=== PATIENT | female | born 1985 | race Caucasian/White ===

== ENCOUNTER 2017-05-22 13:51 | Emergency (ER) | payer OTHER ==
[2017-05-22] MEDS ORDERED: KETOROLAC TROMETHAMINE INJ/PF 30 MG/1 ML SDV IM ONE (14:45)
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
[2017-05-22 15:07] VITALS: BP 138/83
== END 2017-05-22 15:15 | disposition home or self-care (01) ==
LOC: ER 13:51
DX: S39.012A Strain of muscle, fascia and tendon of lower back, initial encounter (principal); S29.012A Strain of muscle and tendon of back wall of thorax, initial encounter; M25.511 Pain in right shoulder; M62.838 Other muscle spasm; V49.40XA Driver injured in collision with unspecified motor vehicles in traffic accident, initial encounter; F17.200 Nicotine dependence, unspecified, uncomplicated
CPT/HCPCS: 99283; 96372; J1885

== ENCOUNTER 2018-04-26 15:05 | Emergency (ER) | payer SELFPAY ==
[2018-04-26 15:20] VITALS: BP 144/88
--- NOTE | 2018-04-26 16:41 | ER Document Report ---
HPI - HPI Patient complains to provider of: right low back pain Onset: Other - several weeks Quality of pain: Achy Pain Level: 4 Context: 33 yo female with right side low back pain into SI joint and posterior right upper leg. No saddle anesthesia. No fever. No abd pain. No dysuria. Associated Symptoms: None Exacerbated by: Movement Relieved by: Denies - ROS ROS below otherwise negative: Yes Systems Reviewed and Negative: Yes All other systems reviewed and negative - REPRODUCTIVE Reproductive: DENIES: : Past Medical History - General Information source: Patient - Social History Smoking Status: Never Smoker Lives with: Family Family History: Arthritis, CAD, CVA, Hyperlipidemia, Hypertension, Malignancy Pulmonary Medical History: Reports: Hx Bronchitis, Hx Pneumonia Renal/ Medical History: Reports: Hx Ectopic - 2010 Past Surgical History: Reports: Hx Adenoidectomy, Hx Appendectomy, Hx Gynecologic Surgery - ectopic , Hx Tonsillectomy - adnoid ectomy. Denies: Hx Tubal Ligation - Immunizations Immunizations up to date: Yes Hx Diphtheria, Pertussis, Tetanus Vaccination: Yes Hx Pneumococcal Vaccination: 06/21/11 Vertical Provider Document - CONSTITUTIONAL Agree With Documented VS: Yes Exam Limitations: No Limitations General Appearance: No Apparent Distress - INFECTION CONTROL TRAVEL OUTSIDE OF THE [place] IN LAST 30 DAYS: No - MUSCULOSKELETAL/EXTREMETIES Musculoskeletal/Extremeties: MAEW, FROM, Tender - left SI joint - NEURO Level of Consciousness: Alert Motor/Sensory: No Motor Deficit, No Sensory Deficit Deep Tendon Reflexes: 2+ - angelika ankle and patellar Course - Re-evaluation Re-evalutation: 04/26/18 16:48 Pain resolved when patient laid on her back with a rolled towel under the sacral iliac joint. She is relieved and does not want any prescriptions or medications. - Vital Signs Vital signs: Temp Pulse Resp BP Pulse Ox 99.0 F 97 16 144/88 H 95 04/26/18 15:18 04/26/18 15:18 04/26/18 15:18 04/26/18 15:18 04/26/18 15:18 Discharge - Discharge Clinical Impression: right sacroilitis Sciatica Qualifiers: Laterality: right Qualified Code(s): M54.31 - Sciatica, right side Condition: Good Disposition: HOME, SELF-CARE Instructions: Acetaminophen, Ibuprofen (General) ([facility]), Low Back Pain ([facility]), Stop Smoking ([facility]), Warm Packs ([facility]) Additional Instructions: Rolled towel under back and buttocks when you are lying supine to help relieve the pain Tylenol up to 4000 mg a day for pain quit smoking Warm compress Return to the emergency room any worsening of the symptoms Forms: Return to Work
== END 2018-04-26 17:03 | disposition home or self-care (01) ==
LOC: ER 15:05
DX: M46.1 Sacroiliitis, not elsewhere classified (principal); M54.31 Sciatica, right side; M54.5 Low back pain; M79.604 Pain in right leg; M53.3 Sacrococcygeal disorders, not elsewhere classified; I10 Essential (primary) hypertension
CPT/HCPCS: 99283

== ENCOUNTER 2018-05-11 14:38 | Emergency (ER) | payer SELFPAY ==
--- NOTE | 2018-05-11 15:18 | ER Document Report ---
ED Medical Screen (RME) - General Chief Complaint: Abdominal Pain Stated Complaint: ABDOMINAL PAIN Time Seen by Provider: 05/11/18 15:14 TRAVEL OUTSIDE OF THE [place] IN LAST 30 DAYS: No - HPI Notes: 05/11/18 15:18 Patient is a 33 female that presents to the emergency department for chief complaint of lower abdominal pain nausea and vaginal bleeding. Patient has had intermittent and sporadic vaginal bleeding throughout the month. She is endorsing a lower abdominal pressure. She does states she has some discomfort with urination. She denies any vomiting but does feel nauseated. She has not taken any home test.. ROS: GENERAL: Denies fever of chills CV: Denies chest pain PHYSICAL EXAMINATION: GENERAL: Well-appearing, well-nourished and in no acute distress. HEAD: Atraumatic, normocephalic. EYES: Pupils equal round extraocular movements intact, conjunctiva are normal. ENT: Nares patent NECK: Normal range of motion LUNGS: No respiratory distress Musculoskeletal: Normal range of motion NEUROLOGICAL: Normal speech, normal gait. PSYCH: Normal mood, normal affect. MDM: Patient seen and examined for rapid initial assessment. Vital signs reviewed. A comprehensive ED assessment and evaluation of the patient, analysis of test results and completion of the medical decision making process will be conducted by additional ED providers. - Related Data Allergies/Adverse Reactions: No Known Allergies Allergy (Verified 05/22/17 13:52) Past Medical History - Social History Frequency of alcohol use: None Drug Abuse: None Pulmonary Medical History: Reports: Hx Bronchitis, Hx Pneumonia Renal/ Medical History: Reports: Hx Ectopic - 2010. Denies: Hx Peritoneal Dialysis Past Surgical History: Reports: Hx Adenoidectomy, Hx Appendectomy, Hx Gynecologic Surgery - ectopic , Hx Tonsillectomy - adnoid ectomy. Denies: Hx Tubal Ligation - Immunizations Immunizations up to date: Yes Hx Diphtheria, Pertussis, Tetanus Vaccination: Yes Physical Exam - Vital signs Vitals: Temp Pulse Resp BP Pulse Ox 98.2 F 92 20 146/87 H 98 05/11/18 14:44 05/11/18 14:44 05/11/18 14:44 05/11/18 14:44 05/11/18 14:44 Course - Vital Signs Vital signs: Temp Pulse Resp BP Pulse Ox 98.2 F 92 20 146/87 H 98 05/11/18 14:44 05/11/18 14:44 05/11/18 14:44 05/11/18 14:44 05/11/18 14:44
[2018-05-11 16:17] LABS: APPEARANCE,URINE SLIGHTLY-CLOUDY; BILIRUBIN,URINE NEGATIVE (NEGATIVE); COLOR,URINE YELLOW; GLUCOSE, URINE NEGATIVE (NEGATIVE); KETONES,URINE NEGATIVE (NEGATIVE); LEUKOCYTE ESTERASE,URINE TRACE (NEGATIVE); NITRITE,URINE NEGATIVE (NEGATIVE); PROTEIN,URINE NEGATIVE (NEGATIVE); URINE SPECIFIC GRAVITY 1.023; UROBILINOGEN,URINE NEGATIVE mg/dL (<2.0)
[2018-05-11] MEDS ORDERED: KETOROLAC TROMETHAMINE 60 MG/2 ML SDV IM ONE (16:26)
[2018-05-11] MEDS ORDERED: ONDANSETRON HCL 8 MG TABLET PO ONE (16:29)
--- NOTE | 2018-05-11 16:30 | ER Document Report ---
ED General - General Chief Complaint: Abdominal Pain Stated Complaint: ABDOMINAL PAIN Time Seen by Provider: 05/11/18 15:14 Mode of Arrival: Ambulatory Information source: Patient, [facility] Records Notes: 33-year-old female with no reported past medical history presents with complaint of 4 days of lower abdominal pain. Patient is having lower abdominal pain that she describes as an intermittent ripping pain. She also states that she has had vaginal bleeding for approximately 2 weeks. Patient has had associated nausea without vomiting. She denies dysuria but admits to feeling pressure. She denies any vaginal discharge, concern for STD. She states this period is longer than usual. Patient does have a history of ectopic over 5 years ago. She denies any fever, chills, chest pain, upper abdominal pain, back pain. She has tried taking Tylenol without relief. TRAVEL OUTSIDE OF THE [place] IN LAST 30 DAYS: No - HPI Onset: Other Onset/Duration: Intermittent, Worse Quality of pain: Other - Ripping Severity: Moderate Associated symptoms: Nausea. denies: Chest pain, Diarrhea, Fever, Headache, Vomiting, Shortness of breath Exacerbated by: Movement Relieved by: Denies Similar symptoms previously: No Recently seen / treated by doctor: No - Related Data Allergies/Adverse Reactions: No Known Allergies Allergy (Verified 05/22/17 13:52) Past Medical History - General Information source: Patient, [facility] Records - Social History Smoking Status: Current Every Day Smoker Cigarette use (# per day): Yes - 10 Smoking Education Provided: Yes - Smoking cessation counseling was provided for 4 minutes at the bedside Frequency of alcohol use: None Drug Abuse: None Lives with: Family Family History: Arthritis, CAD, CVA, Hyperlipidemia, Hypertension, Malignancy Patient has suicidal ideation: No Patient has homicidal ideation: No Pulmonary Medical History: Reports: Hx Bronchitis, Hx Pneumonia Renal/ Medical History: Reports: Hx Ectopic - 2010. Denies: Hx Peritoneal Dialysis Past Surgical History: Reports: Hx Adenoidectomy, Hx Appendectomy, Hx Gynecologic Surgery - ectopic , Hx Tonsillectomy - adnoid ectomy. Denies: Hx Tubal Ligation - Immunizations Immunizations up to date: Yes Hx Diphtheria, Pertussis, Tetanus Vaccination: Yes Hx Pneumococcal Vaccination: 06/21/11 Review of Systems - Review of Systems Notes: REVIEW OF SYSTEMS: CONSTITUTIONAL : Denies fever, chills, or sweats. Denies recent illness. Denies weight loss, recent hospitalizations. EENT: Denies visual changes, eye pain. Denies sore throat, oral lesions, difficulty swallowing. CARDIOVASCULAR: Denies chest pain. Denies palpitations. Denies lower extremity edema. RESPIRATORY: Denies cough. Denies shortness of breath, wheezing. GASTROINTESTINAL: Denies abdominal distention. Denies vomiting, or diarrhea. Denies blood in vomitus, stools, or per rectum. Denies black, tarry stools. Denies constipation. GENITOURINARY: Denies difficulty urinating, painful urination, frequency, blood in urine, or vaginal discharge. MUSCULOSKELETAL: Denies back or neck pain or stiffness. Denies joint pain or swelling. SKIN: Denies rash, lesions or sores. HEMATOLOGIC : Denies easy bruising or bleeding. LYMPHATIC: Denies swollen glands. NEUROLOGICAL: Denies confusion or altered mental status. Denies loss of consciousness. Denies dizziness or lightheadedness. Denies headache. Denies weakness or paralysis. Denies problems difficulty with ambulation, slurred speech. Denies sensory loss, numbness, or tingling. Denies seizures. PSYCHIATRIC: Denies anxiety or stress. Denies depression, suicidal ideation, or homicidal ideation. Denies visual or auditory hallucinations. Physical Exam - Vital signs Vitals: Temp Pulse Resp BP Pulse Ox 98.2 F 92 20 146/87 H 98 05/11/18 14:44 05/11/18 14:44 05/11/18 14:44 05/11/18 14:44 05/11/18 14:44 - Notes Notes: PHYSICAL EXAMINATION: GENERAL: Well-appearing, well-nourished and in no acute distress. HEAD: Atraumatic, normocephalic. EYES: Pupils equal round and reactive to light, extraocular movements intact, conjunctiva are normal. ENT: Nares patent, oropharynx clear without exudates. Moist mucous membranes. NECK: Normal range of motion, supple without lymphadenopathy LUNGS: Breath sounds clear to auscultation bilaterally and equal. No wheezes rales or rhonchi. HEART: Regular rate and rhythm without murmurs ABDOMEN: Diffuse lower abdominal pain left greater than right. No guarding, no rebound. No masses appreciated. Female : Pelvic exam; External genitalia unremarkable. Speculum exam with moderate bleeding. Vaginal wall unremarkable. Os closed. No cervical motion tenderness. No adnexal tenderness or masses appreciated. Swabs obtained for gonorrhea, chlamydia and wet prep. Musculoskeletal: Normal range of motion, no pitting or edema. No cyanosis. NEUROLOGICAL: Cranial nerves grossly intact. Normal speech, normal gait. Normal sensory, motor exams PSYCH: Normal mood, normal affect. SKIN: Warm, Dry, normal turgor, no rashes or lesions noted. Course - Re-evaluation Re-evalutation: Laboratory 05/11/18 05/11/18 05/11/18 15:48 17:24 17:24 Urine Color YELLOW Urine Appearance SLIGHTLY-CLOUDY Urine pH 5.0 Ur Specific [place] 1.023 Urine Protein NEGATIVE Urine Glucose (UA) NEGATIVE Urine Ketones NEGATIVE Urine Blood LARGE H Urine Nitrite NEGATIVE Urine Bilirubin NEGATIVE Urine Urobilinogen NEGATIVE Ur Leukocyte Esterase TRACE H Urine WBC (Auto) 9 Urine RBC (Auto) >182 Urine Bacteria (Auto) TRACE Squamous Epi Cells Auto 2 Urine Mucus (Auto) RARE Urine Ascorbic Acid NEGATIVE Urine HCG, Qual NEGATIVE Trichomonas (Wet Prep) NO TRICHOMONAS SEEN Vaginal WBC RARE WBCS SEEN Vaginal RBC 4+ RBCS SEEN Vaginal Yeast NO YEAST SEEN Chlamydia DNA (PCR) NOT DETECTED N.gonorrhoeae DNA (PCR) DETECTED H Transvaginal US 05/11/18 16:26 IMPRESSION: Study is essentially normal. There appears be a small uterine fibroid. 33-year-old female with no reported past medical history presents with complaint of 4 days of lower abdominal pain. Patient is having lower abdominal pain that she describes as an intermittent ripping pain. She also states that she has had vaginal bleeding for approximately 2 weeks. Patient has had associated nausea without vomiting. She denies dysuria but admits to feeling pressure. She denies any vaginal discharge, concern for STD. Vital signs stable upon arrival. Exam is significant for suprapubic as well as right and left lower quadrant abdominal pain. Pelvic exam was performed and showed blood. Urinalysis is not consistent with infection. Wet prep does not show Trichomonas or bacterial vaginosis. Patient made aware that her gonorrhea and Chlamydia testing would not likely be back prior to discharge. I explained to her that if she was concerned that I did prophylactically treat that the patient is declining at this time. 05/11/18 17:23 Patient reevaluated after receiving IM Toradol. She does report improvement of pain. Patient was discharged home with Naprosyn. Patient was evaluated and treated as appropriate for the patient's presenting symptoms and complaint, with consideration of any critical or life threatening conditions that may be associated with their obtained history and exam as noted above. All results were discussed with patient and aware that if her gonorrhea and chlamydia are positive that we will call her. Patient provided the opportunity to ask questions, and express concerns. Patient was educated on treatments based on their presumed diagnosis as noted above. At this time we will discharge the patient with return precautions and follow-up recommendations. Verbal discharge instructions given a the bedside. Medication warnings reviewed. Patient is in agreement with this plan and has verbalized understanding of return precautions. After careful consideration I feel that that patient can be safely discharged from the emergency department, they were advised to followup with a primary care physician in 2-3 days. Dictation on this chart was performed using voice recognition software and may result in unintended grammatical, spelling, syntax or errors. 05/11/18 21:34 - Vital Signs Vital signs: Temp Pulse Resp BP Pulse Ox 98.8 F 82 15 118/78 98 05/11/18 18:36 05/11/18 18:36 05/11/18 18:36 05/11/18 18:36 05/11/18 14:44 - Laboratory Laboratory results interpreted by me: 05/11/18 05/11/18 15:48 17:24 Urine Blood LARGE H Ur Leukocyte Esterase TRACE H N.gonorrhoeae DNA (PCR) DETECTED H - Diagnostic Test Radiology reviewed: Image reviewed, Reports reviewed Discharge - Discharge Clinical Impression: Pelvic pain, Dysfunctional uterine bleeding, Elevated blood pressure reading, Gonorrhea Menorrhagia Qualifiers: Menorrahagia type: premenopausal Qualified Code(s): N92.4 - Excessive bleeding in the premenopausal period Uterine fibroid Qualifiers: Uterine leiomyoma location: unspecified location Qualified Code(s): D25.9 - Leiomyoma of uterus, unspecified Condition: Good Disposition: HOME, SELF-CARE Instructions: Pelvic Pain ([facility]), Vaginal Bleeding ([facility]) Additional Instructions: Your ultrasound today showed a small uterine fibroid. Fibroids can cause acute pain. Your urine does not show any evidence of infection, bacterial vaginosis or trichomonas. Gonorrhea and chlamydia are pending. Follow up with your [id number] hours for further care or return to the ED IMMEDIATELY if symptoms worsen or you have any concerns. If you cannot afford to follow up with your primary care physician a list of low cost clinics have been provided at the end of your discharge papers as well. Most prescribed medications have multiple side effects. The safest thing to do is when filling your prescription speak to your pharmacist regarding possible interactions with your normal home medications and over the counter medications such as Ibuprofen, Tylenol, Benadryl. If you experience any symptoms that cause you discomfort or concern you should discontinue the medication immediately and return to the emergency room or call your primary care physician. Prescriptions: Naproxen [Naprosyn] 500 mg PO BID #20 tablet Forms: Elevated Blood Pressure Referrals: AMANDA TRAN MD [ACTIVE STAFF] - Follow up as needed
[2018-05-11 17:49] LABS: RBCS (WET MOUNT) 4+ RBCS SEEN; T.VAGINALIS (WET MOUNT) NO TRICHOMONAS SEEN; WBCS (WET MOUNT) RARE WBCS SEEN; YEAST (WET MOUNT) NO YEAST SEEN
--- NOTE | 2018-05-11 17:53 | RADIOLOGY REPORT (SQ) ---
EXAM DESCRIPTION: U/S NON OB PEL TV W/DOPPLER COMPLETED DATE/TIME: 05/11/2018 5:26 pm REASON FOR STUDY: pelvic pain LMP 04/24/2018 COMPARISON: None. TECHNIQUE: Dynamic and static grayscale images acquired of the pelvis via transvaginal approach and recorded on PACS. Additional selected color Doppler and spectral images recorded. LIMITATIONS: None. FINDINGS: UTERUS: Contour normal. There is the suggestion of a 3.8 cm fibroid. ENDOMETRIAL STRIPE: No focal or generalized thickening. No masses. CERVIX: 3.6 cm. RIGHT OVARY AND DOPPLER: Normal size. No worrisome masses. Normal arterial vascular flow without evid ence for torsion. LEFT OVARY AND DOPPLER: Normal size. No worrisome masses. Normal arterial vascular flow without evide nce for torsion. There is a cluster of small cysts. FREE FLUID: None noted. OTHER: No other significant finding. MEASUREMENTS: UTERUS: 10.4 x 5.8 x 4.7 cm. ENDOMETRIAL STRIPE: 4.5 mm. RIGHT OVARY: 4.6 x 2 x 2.1 cm. LEFT OVARY: 4.4 x 2.1 x 2.4 cm. IMPRESSION: Study is essentially normal. There appears be a small uterine fibroid. TECHNICAL DOCUMENTATION: JOB ID: [id number] [employer]- All Rights Reserved Rev-11/05 Reading location - IP/workstation name: [email or web address]
[2018-05-11] MEDS ORDERED: HYDROCODONE/ACETAMINOPHEN 5-325 MG (6 TAB/ER DISP) PO PRN (18:14)
[2018-05-11 18:37] VITALS: BP 118/78
[2018-05-11 19:13] LABS: CHLAM PCR NOT DETECTED (NOT DETECT); GON PCR DETECTED (NOT DETECT)
--- NOTE | 2018-05-11 21:42 | ER Document Report ---
Doctor's Note Notes: 05/11/18 21:40 Patient contacted at [phone] and made aware of her positive gonorrhea results. She was informed that she would need to return to the emergency room treatment. She was also made aware that her partners will need to be treated. Patient expresses understanding and will return to the emergency department for treatment.
[2018-05-11] MEDS ORDERED: CEFTRIAXONE INJ 250 MG VIAL IM ONE (22:15)
[2018-05-11] MEDS ORDERED: LIDOCAINE 1% INJ-PF (10 MG/ML) 30 ML SDV INJ ONE (22:15)
[2018-05-11] MEDS ORDERED: AZITHROMYCIN 250 MG TABLET PO ONE (22:15)
== END 2018-05-11 18:39 | disposition home or self-care (01) ==
LOC: ER 14:38
DX: D25.9 Leiomyoma of uterus, unspecified (principal); A54.9 Gonococcal infection, unspecified; N92.4 Excessive bleeding in the premenopausal period; N93.8 Other specified abnormal uterine and vaginal bleeding; R10.2 Pelvic and perineal pain; R03.0 Elevated blood-pressure reading, without diagnosis of hypertension; R11.0 Nausea; F17.210 Nicotine dependence, cigarettes, uncomplicated; Z71.6 Tobacco abuse counseling
CPT/HCPCS: 99284; 96372; 87210; 81025; 81001; 87491; 87591; 76830; 93976; J1885; S0119

== ENCOUNTER 2018-07-07 13:57 | Emergency (ER) | payer SELFPAY ==
[2018-07-07 14:19] VITALS: BP 131/94
--- NOTE | 2018-07-07 15:32 | ER Document Report ---
ED Medical Screen (RME) - General Chief Complaint: High Blood Pressure Stated Complaint: POSSIBLE HIGH BLOOD PRESSURE Time Seen by Provider: 07/07/18 15:26 Mode of Arrival: Ambulatory Information source: Patient Notes: pt reports she was at work and felt chest pressure for 1.5 hours, felt like she had been punched in the chest. EMT came, noted she ahd high blood pressure, sent her here. reports she was clammy. TRAVEL OUTSIDE OF THE [place] IN LAST 30 DAYS: No - Related Data Allergies/Adverse Reactions: No Known Allergies Allergy (Verified 07/07/18 14:01) Past Medical History - Social History Chew tobacco use (# tins/day): No Frequency of alcohol use: None Drug Abuse: None Pulmonary Medical History: Reports: Hx Bronchitis, Hx Pneumonia Renal/ Medical History: Reports: Hx Ectopic - 2010. Denies: Hx Peritoneal Dialysis Past Surgical History: Reports: Hx Adenoidectomy, Hx Appendectomy, Hx Gynecologic Surgery - ectopic , Hx Tonsillectomy - adnoid ectomy. Denies: Hx Tubal Ligation - Immunizations Immunizations up to date: Yes Hx Diphtheria, Pertussis, Tetanus Vaccination: Yes Physical Exam - Vital signs Vitals: Temp Pulse Resp BP Pulse Ox 98.9 F 87 13 131/94 H 97 07/07/18 14:16 07/07/18 14:16 07/07/18 14:16 07/07/18 14:16 07/07/18 14:16 Course - Vital Signs Vital signs: Temp Pulse Resp BP Pulse Ox 98.9 F 87 13 131/94 H 97 07/07/18 14:16 07/07/18 14:16 07/07/18 14:16 07/07/18 14:16 07/07/18 14:16 - Laboratory Result Diagrams: 07/07/18 15:54 07/07/18 15:54 Laboratory results interpreted by me: 07/07/18 07/07/18 15:54 15:54 WBC 10.8 H MCV 79 L MCH 26.4 L RDW 15.3 H Chloride 108 H Creatine Kinase 24 L Doctor's Discharge - Discharge Clinical Impression: Chest wall pain, Elevated blood pressure reading Condition: Stable Disposition: HOME, SELF-CARE Instructions: Chest Wall Pain ([facility]) Additional Instructions: Maintain adequate fluid and food intake Take home medications as directed Healthy diet/exercise Stop smoking Monitor blood pressure daily and keep a log Monitor symptoms for any acute changes Recheck with your PCM in 2-3 days Consider a follow-up with cardiology Return to the ED with any worsening symptoms and/or development of fever, headache, chest pain, palpitations, syncope, shortness of breath, trouble breathing, abdominal pain, n/v/d, blood in stool/urine, loss of control of bowel/bladder, urinary retention, muscle weakness/paralysis, numbness/tingling, or other worsening symptoms that are concerning to you. Forms: Elevated Blood Pressure, Smoking Cessation Education, Return to Work Referrals: PERLA NEVILLE MD [ACTIVE STAFF] - Follow up as needed
[2018-07-07 16:10] LABS: ABSOLUTE EOSINOPHILS # (AUTO) 0.1 10^3/uL (0.0-0.6); ABSOLUTE LYMPHOCYTES (AUTO) 2.6 10^3/uL (0.5-4.7); ABSOLUTE MONOCYTES (AUTO) 0.6 10^3/uL (0.1-1.4); ABSOLUTE NEUT (AUTO) 7.4 10^3/uL (1.7-8.2); BASOPHILS % (AUTO) 0.3 % (0-2); EOSINOPHILS % (AUTO) 1.1 % (0-6); HEMATOCRIT 38.9 % (36.0-47.0); HEMOGLOBIN 13.1 g/dL (12.0-15.5); LYMPHOCYTES % (AUTO) 24.3 % (13-45); MEAN CORPUSCULAR HEMOGLOBIN 26.4 pg (27.0-33.4); MEAN CORPUSCULAR HGB CONC 33.6 g/dL (32.0-36.0); MEAN CORPUSCULAR VOLUME 79 fl (80-97); MONOCYTES % (AUTO) 5.7 % (3-13); PLATELET COUNT 333 10^3/uL (150-450); RED BLOOD COUNT 4.94 10^6/uL (3.72-5.28); RED CELL DISTRIBUTION WIDTH 15.3 % (11.5-14.0); SEGMENTED NEUTROPHILS % (AUTO) 68.6 % (42-78); TOTAL CELLS COUNTED % (AUTO) 100 %; WHITE BLOOD COUNT 10.8 10^3/uL (4.0-10.5)
--- NOTE | 2018-07-07 16:12 | RADIOLOGY REPORT (SQ) ---
EXAM DESCRIPTION: CHEST 2 VIEWS COMPLETED DATE/TIME: 07/07/2018 4:00 pm REASON FOR STUDY: chest pressure' COMPARISON: 06/17/2015. EXAM PARAMETERS: NUMBER OF VIEWS: two views TECHNIQUE: Digital Frontal and Lateral radiographic views of the chest acquired. RADIATION DOSE: NA LIMITATIONS: none FINDINGS: LUNGS AND PLEURA: No opacities, masses or pneumothorax. No pleural effusion. MEDIASTINUM AND HILAR STRUCTURES: No masses or contour abnormalities. HEART AND VASCULAR STRUCTURES: Heart normal size. No evidence for failure. BONES: No acute findings. HARDWARE: None in the chest. OTHER: No other significant finding. IMPRESSION: NO ACUTE RADIOGRAPHIC FINDING IN THE CHEST. TECHNICAL DOCUMENTATION: JOB ID: [id number] [employer]- All Rights Reserved Reading location - IP/workstation name: [email or web address]
--- NOTE | 2018-07-07 16:25 | ER Document Report ---
Addendum entered and electronically signed by TAIWO STEINBERG PA-C 07/07/18 16:47: Discharge - Discharge Clinical Impression: Chest wall pain, Elevated blood pressure reading Condition: Stable Disposition: HOME, SELF-CARE Instructions: Chest Wall Pain ([facility]) Additional Instructions: Maintain adequate fluid and food intake Take home medications as directed Healthy diet/exercise Stop smoking Monitor blood pressure daily and keep a log Monitor symptoms for any acute changes Recheck with your PCM in 2-3 days Consider a follow-up with cardiology Return to the ED with any worsening symptoms and/or development of fever, headache, chest pain, palpitations, syncope, shortness of breath, trouble breathing, abdominal pain, n/v/d, blood in stool/urine, loss of control of bowel/bladder, urinary retention, muscle weakness/paralysis, numbness/tingling, or other worsening symptoms that are concerning to you. Forms: Elevated Blood Pressure, Smoking Cessation Education Referrals: PERLA NEVILLE MD [ACTIVE STAFF] - Follow up as needed Original Note: ED General - General Chief Complaint: High Blood Pressure Stated Complaint: POSSIBLE HIGH BLOOD PRESSURE Time Seen by Provider: 07/07/18 15:26 Mode of Arrival: Ambulatory TRAVEL OUTSIDE OF THE [place] IN LAST 30 DAYS: No - HPI Notes: Patient is a 33-year-old female with a history of anxiety and panic attacks who presents the emergency department complaining of having chest pressure/pain that lasted about 1.5 hours prior to arrival with an elevated blood pressure was in the 170's systolic. Patient was at work at the time when she started feeling clammy and EMS arrived and told her that she had elevated blood pressure which is what prompted her to come to the emergency department. Patient states that the pain has since improved. Patient states that she is feeling much better. Pt has a URI currently; although, her cough has improved. Pt states that push ing on her chest makes the pain worse. The discomfort does not radiate. No other significant cardio-pulmonary medical history. Patient states that her mother had a IN, but no other family history. Patient has been able to ambulate without any worsening symptoms. She has no associated dyspnea on exertion or shortness of breath. Denies any prolonged immobilization, distance travel, recent surgery/trauma, personal cancer history, hormone use, or previous DVT/PE. Denies any headache, fever, neck pain, URI, sore throat, palpitations, syncope, cough, shortness of breath, wheeze, dyspnea, abdominal pain, nausea/vomiting/diarrhea, urinary retention, dysuria, hematuria, back pain, or rash. - Related Data Allergies/Adverse Reactions: No Known Allergies Allergy (Verified 07/07/18 14:01) Past Medical History - General Information source: Patient - Social History Smoking Status: Current Every Day Smoker Chew tobacco use (# tins/day): No Frequency of alcohol use: None Drug Abuse: None Family History: Arthritis, CAD, CVA, Hyperlipidemia, Hypertension, Malignancy Patient has suicidal ideation: No Patient has homicidal ideation: No Pulmonary Medical History: Reports: Hx Bronchitis, Hx Pneumonia Renal/ Medical History: Reports: Hx Ectopic - 2010. Denies: Hx Peritoneal Dialysis Past Surgical History: Reports: Hx Adenoidectomy, Hx Appendectomy, Hx Gynecologic Surgery - ectopic , Hx Tonsillectomy - adnoid ectomy. Denies: Hx Tubal Ligation - Immunizations Immunizations up to date: Yes Hx Diphtheria, Pertussis, Tetanus Vaccination: Yes Hx Pneumococcal Vaccination: 06/21/11 Review of Systems - Review of Systems -: Yes All other systems reviewed and negative Physical Exam - Vital signs Vitals: Temp Pulse Resp BP Pulse Ox 98.9 F 87 13 131/94 H 97 07/07/18 14:16 07/07/18 14:16 07/07/18 14:16 07/07/18 14:16 07/07/18 14:16 - Notes Notes: PHYSICAL EXAMINATION: GENERAL: Well-appearing, well-nourished and in no acute distress. HEAD: Atraumatic, normocephalic. EYES: Pupils equal round and reactive to light, extraocular movements intact, sclera anicteric, conjunctiva are normal. ENT: Nares patent and with clear discharge. oropharynx clear without exudates. No tonsilar hypertrophy or erythema. Moist mucous membranes. No sinus tenderness. NECK: Normal range of motion, supple without lymphadenopathy Chest: + reproducible tenderness to palpation of the mid sternal area and reproducible with arm extension/abduction. LUNGS: Breath sounds clear to auscultation bilaterally and equal. No wheezes rales or rhonchi. HEART: Regular rate and rhythm without murmurs, rubs, gallops. ABDOMEN: Soft, nontender, nondistended abdomen. No guarding, no rebound. No masses appreciated. Normal bowel sounds present. No CVA tenderness bilaterally. Musculoskeletal: FROM to passive/active. Strength 5+/5. Adarsh neg. No asymmetry to LE's. Extremities: No cyanosis, clubbing, or edema b/l. Peripheral pulses 2+. Capillary refill less than 3 seconds. NEUROLOGICAL: Normal speech, normal gait. PSYCH: Normal mood, normal affect. SKIN: Warm, Dry, normal turgor, no rashes or lesions noted. Course - Re-evaluation Re-evalutation: 07/07/18 16:45 Patient is an afebrile, well-hydrated 33-year-old female who presents to the ED with chest wall pain and elevated BP. Vitals are acceptable without any significant tachycardia, tachypnea, or hypoxia. PE is otherwise unremarkable aside from the reproducible chest wall tenderness. Patient is nontoxic- appearing and is tolerating p.o. without any difficulties. Pt is currently asymptomatic otherwise. CBC, CMP, EKG/cardiac enzymes, chest x-ray are all unremarkable for any acute pathology. Patient has a heart score of 1 (for family history/smoker), Wells score of 0, and is PERC negative. Patient does not have any dyspnea or shortness of breath. Reviewed with Dr. Lozano. No further labs or imaging warranted at this time. Patient's presentation and symptomatology creates low suspicion for ACS, PE, pneumothorax, pericarditis, dissection, respiratory compromise, severe dehydration, sepsis, meningitis, or other systemic emergent condition at this time. Patient is aware that this condition can change from initial presentation and she needs to monitor symptoms closely and seek medical attention for any acute changes. Pt is feeling better and would like to go home. Recommend conservative measures for symptoms. Recheck with your PCM in 2-3 days. Consider consult with Cardiology. Return to the ED with any worsening/concerning symptoms otherwise as reviewed in patsy baez. Patient is in agreement. Strict return precautions. - Vital Signs Vital signs: Temp Pulse Resp BP Pulse Ox 98.9 F 87 13 131/94 H 97 07/07/18 14:16 07/07/18 14:16 07/07/18 14:16 07/07/18 14:16 07/07/18 14:16 - Laboratory Result Diagrams: 07/07/18 15:54 07/07/18 15:54 Laboratory results interpreted by me: 07/07/18 07/07/18 15:54 15:54 WBC 10.8 H MCV 79 L MCH 26.4 L RDW 15.3 H Chloride 108 H Creatine Kinase 24 L Discharge - Discharge Clinical Impression: Chest wall pain Condition: Stable Disposition: HOME, SELF-CARE Instructions: Chest Wall Pain ([facility]) Additional Instructions: Maintain adequate fluid and food intake Take home medications as directed Healthy diet/exercise Stop smoking Monitor blood pressure daily and keep a log Monitor symptoms for any acute changes Recheck with your PCM in 2-3 days Consider a follow-up with cardiology Return to the ED with any worsening symptoms and/or development of fever, headache, chest pain, palpitations, syncope, shortness of breath, trouble breathing, abdominal pain, n/v/d, blood in stool/urine, loss of control of bowel/bladder, urinary retention, muscle weakness/paralysis, numbness/tingling, or other worsening symptoms that are concerning to you. Forms: Elevated Blood Pressure, Smoking Cessation Education Referrals: PERLA NEVILLE MD [ACTIVE STAFF] - Follow up as needed
[2018-07-07 16:29] LABS: ALANINE AMINOTRANSFERASE 23 U/L (9-52); ALBUMIN 4.5 g/dL (3.5-5.0); ALKALINE PHOSPHATASE 105 U/L (38-126); ANION GAP 8 (5-19); ASPARTATE AMINO TRANSFERASE 15 U/L (14-36); BILIRUBIN,DIRECT 0.1 mg/dL (0.0-0.4); BILIRUBIN,TOTAL 0.2 mg/dL (0.2-1.3); BLOOD UREA NITROGEN 12 mg/dL (7-20); CALCIUM 9.8 mg/dL (8.4-10.2); CARBON DIOXIDE 26 mmol/L (22-30); CHLORIDE 108 mmol/L (98-107); CREATINE KINASE 24 U/L (30-135); GLUCOSE 100 mg/dL (75-110); POTASSIUM 4.5 mmol/L (3.6-5.0); SODIUM 141.7 mmol/L (137-145); TOTAL PROTEIN 7.3 g/dL (6.3-8.2)
[2018-07-07 16:41] LABS: CREATINE KINASE MB < 0.22 ng/mL (<4.55); TROPONIN I < 0.012 ng/mL
--- NOTE | 2018-07-07 23:06 | EKG REPORT ---
SEVERITY:- NORMAL ECG - SINUS RHYTHM : Confirmed by: Kathleen Carolina 07-Jul-2018 23:05:47
== END 2018-07-07 16:54 | disposition home or self-care (01) ==
LOC: ER 13:57
DX: R07.89 Other chest pain (principal); I10 Essential (primary) hypertension; F17.200 Nicotine dependence, unspecified, uncomplicated
CPT/HCPCS: 36415; 71046; 80053; 82550; 82553; 84484; 84703; 85025; 93005; 93010; 99284

== ENCOUNTER 2018-10-20 14:52 | Emergency (ER) | payer SELFPAY ==
[2018-10-20 15:08] VITALS: BP 149/83
== END 2018-10-20 17:30 | disposition left against medical advice (07) ==
LOC: ER 14:52
DX: Z53.21 Procedure and treatment not carried out due to patient leaving prior to being seen by health care provider (principal)